=== PATIENT | female | born 1930 | race Caucasian/White ===

== ENCOUNTER 2017-07-01 10:27 | Inpatient (IN) | payer MEDICARE, MEDICAID ==
[~2017-07-01] VITALS: Ht 154.9 cm; Wt 84.1 kg
[~2017-07-01 10:27] MED LIST: ALCL15CR TOP; ARFO15VI3 NEB; ASPI-1265 PO; ATOR10TA87 PO; DESO60OI6 TP; DOCU-28 PO; ESOM40CA PO; HYDR-569 PO; LEVO75TA PO; MAGN296S50 PO; MECL12.5 PO; NOR5T PO; NYST1000 PO; RANI150C4 PO; VAL5T PO; enoxaparin 40mg/0.4ml syringe SUBCUT SCH
[2017-07-01 11:05] LABS: BASOPHILS % (AUTO) 0 % (0-1); EOSINOPHILS # (AUTO) 0.2 X10'3 (0-0.9); EOSINOPHILS % (AUTO) 2.1 % (0-6); HEMATOCRIT 33.7 % (35.0-45.0); HEMOGLOBIN 11.5 g/dl (12.0-16.0); LYMPHOCYTES # (AUTO) 2.1 X10'3 (1.1-4.8); LYMPHOCYTES % (AUTO) 24.9 % (21-51); MEAN CORPUSCULAR HEMOGLOBIN 29.6 PG (27.0-31.0); MEAN CORPUSCULAR VOLUME 86.9 FL (78-98); MEAN PLATELET VOLUME 6.9 FL (7.4-10.4); MONOCYTES # (AUTO) 0.5 X10'3 (0-0.9); MONOCYTES % (AUTO) 5.5 % (2-12); NEUTROPHILS # (AUTO) 5.8 X10'3 (1.8-7.7); NEUTROPHILS % (AUTO) 67.5 % (42-75); PLATELET COUNT 303 X10'3 (140-440); RED BLOOD COUNT 3.88 X10'6 (4.20-5.60); RED CELL DISTRIBUTION WIDTH 14.9 % (11.5-14.5); WHITE BLOOD COUNT 8.5 X10'3 (4.5-11.0)
[2017-07-01 11:06] LABS: CLARITY,URINE Clear (Clear); COLOR,URINE Yellow (Yellow); GLUCOSE, URINE Negative (Neg); KETONES,URINE Negative (Neg); LEUKOCYTE ESTERASE ,URINE Small (Neg); NITRITES, URINE Negative (Neg); OCCULT BLOOD,URINE Negative (Neg); PROTEIN,URINE Negative (Neg); UROBILINOGEN,URINE 0.2 E.U/dL (0.2-1.0)
[2017-07-01 11:08] LABS: UA COLLECTION TYPE CLN CATCH MIDSTREAM
[2017-07-01 11:11] LABS: BACTERIA,URINE NONE SEEN /HPF (Neg); RBC,URINE 0-2 /HPF (0-2); SQUAMOUS EPITHELIAL CELL,UR FEW /LPF (FEW); WBC,URINE 0-4 /HPF (0-4)
[2017-07-01 11:15] LABS: PARTIAL THROMBOPLASTIN TIME 24 SECONDS (22-32); PROTHROMBIN TIME 10.2 SECONDS (9.0-12.0)
[2017-07-01 11:20] LABS: ALANINE AMINOTRANSFERASE 24 U/L (12-78); ALBUMIN 3.6 G/DL (3.4-5.0); ALBUMIN/GLOBULIN RATIO 0.9 (1.1-1.5); ALKALINE PHOSPHATASE 87 IU/L (46-116); ANION GAP 9 (8-16); ASPARTATE AMINO TRANSFERASE 17 U/L (10-37); BILIRUBIN,TOTAL 0.3 MG/DL (0.1-1.0); BLOOD UREA NITROGEN 18 MG/DL (7-18); BUN/CREATININE RATIO 14.9 (6.6-38.0); CALCIUM 9.3 MG/DL (8.5-10.1); CHLORIDE 108 MMOL/L (99-107); CREATININE 1.21 MG/DL (0.40-0.90); GLUCOSE 101 MG/DL (70-104); POTASSIUM 3.8 MMOL/L (3.5-5.1); SODIUM 145 MMOL/L (135-145); TOTAL CARBON DIOXIDE 28.5 MMOL/L (24-32); TOTAL PROTEIN 7.8 G/DL (6.4-8.2); eGFR 42 ML/MIN
[2017-07-01] MEDS ORDERED: morphine 4 MG/ML inj SYRINge IV PRN (16:15)
[2017-07-01] MEDS ORDERED: mag hydrox/Alum hydrox/simeth 30ml oral suspension PO PRN (16:15)
[2017-07-01] MEDS ORDERED: acetaminophen 325mg tablet PO PRN ×2 (16:15)
[2017-07-01] MEDS ORDERED: magnesium hydroxide 30ml (MOM) UD suspension PO PRN (16:15)
[2017-07-01] MEDS ORDERED: ondansetron/PF 4mg/2ml inj IV PRN (16:15)
[2017-07-01] MEDS ORDERED: metoprolol tartrate 1mg/ml inj IV PRN ×2 (16:20→16:30)
[2017-07-01] MEDS ORDERED: nitroGLYCERIN 0.4mg SUBLingual tab SL PRN ×2 (16:20→16:30)
[2017-07-01] MEDS ORDERED: regadenoson 0.4mg/5ml syringe IV ONE ×2 (16:20→16:30)
[2017-07-01] MEDS ORDERED: aminophylline 250mg/10ml inj. IV PRN ×2 (16:20→16:30)
[2017-07-01] MEDS ORDERED: ARFO15VI3 NEB (16:45)
[2017-07-01 18:30] VITALS: BP 111/65
[2017-07-01] MEDS ORDERED: enoxaparin 40mg/0.4ml syringe SUBCUT ONE (18:45)
[2017-07-01 22:00] VITALS: BP 134/65
[2017-07-02] VITALS (10 sets, daily range): BP systolic 131–176; BP diastolic 63–77
[2017-07-02] MEDS ORDERED: pantoprazole 40mg Tablet.DR PO SCH (07:30)
[2017-07-02] MEDS ORDERED: enoxaparin 40mg/0.4ml syringe SUBCUT SCH (08:00)
[2017-07-02] MEDS ORDERED: regadenoson 0.4mg/5ml syringe IV ONE (08:20)
[2017-07-02] MEDS ORDERED: aminophylline inj. 10 ML IV ONE (08:20)
[2017-07-02] MEDS ORDERED: PANT40TA4 PO (11:00)
== END 2017-07-02 12:51 | disposition home health service (06) | DRG 392 ==
LOC: ER 10:27 → ED HOLD 16:11 → PCU 3S 21:00
PROVIDERS: ADMIT Internal Medicine; ATTEND Internal Medicine
PROC: 4A02XM4 Measurement of Cardiac Total Activity, External Approach (ICD-10-PCS; principal; 2017-07-02)
PROC: 3E073KZ Introduction of Other Diagnostic Substance into Coronary Artery, Percutaneous Approach (ICD-10-PCS; 2017-07-02)
DX: K21.9 Gastro-esophageal reflux disease without esophagitis (principal); J44.9 Chronic obstructive pulmonary disease, unspecified; E03.9 Hypothyroidism, unspecified; E78.00 Pure hypercholesterolemia, unspecified; E78.5 Hyperlipidemia, unspecified; I10 Essential (primary) hypertension; K29.70 Gastritis, unspecified, without bleeding; G89.29 Other chronic pain; M10.9 Gout, unspecified; R42 Dizziness and giddiness; M19.90 Unspecified osteoarthritis, unspecified site; M54.9 Dorsalgia, unspecified; Z90.49 Acquired absence of other specified parts of digestive tract; Z90.710 Acquired absence of both cervix and uterus; Z79.899 Other long term (current) drug therapy; Z88.1 Allergy status to other antibiotic agents; Z88.6 Allergy status to analgesic agent; Z88.2 Allergy status to sulfonamides; Z91.018 Allergy to other foods; Z88.8 Allergy status to other drugs, medicaments and biological substances
CPT/HCPCS: 36415; 71045; 78452; 80053; 81001; 84484; 85025; 85610; 85730; 87070; 87088; 93017; 99285; A9500; J0280

== ENCOUNTER 2017-08-20 18:08 | Emergency (ER) | payer MEDICARE, MEDICAID ==
[~2017-08-20] VITALS: Ht 154.9 cm; Wt 82.0 kg
[~2017-08-20 18:08] MED LIST changes: -ALCL15CR TOP; -DESO60OI6 TP; -DOCU-28 PO; -ESOM40CA PO; -MAGN296S50 PO; -NYST1000 PO; +PANT40TA4 PO; -enoxaparin 40mg/0.4ml syringe SUBCUT SCH
[2017-08-20 20:57] VITALS: BP 143/68
== END 2017-08-20 20:55 | disposition home or self-care (01) ==
LOC: ER 18:09
DX: M79.604 Pain in right leg (principal); E78.00 Pure hypercholesterolemia, unspecified; I10 Essential (primary) hypertension; J44.9 Chronic obstructive pulmonary disease, unspecified; K21.9 Gastro-esophageal reflux disease without esophagitis; G89.29 Other chronic pain; Z90.710 Acquired absence of both cervix and uterus; Z90.49 Acquired absence of other specified parts of digestive tract; Z88.6 Allergy status to analgesic agent; Z88.2 Allergy status to sulfonamides; Z88.1 Allergy status to other antibiotic agents; Z86.718 Personal history of other venous thrombosis and embolism
CPT/HCPCS: 93971; 99284

== ENCOUNTER 2017-08-26 09:09 | Inpatient (IN) | payer MEDICARE, MEDICAID ==
[~2017-08-26] VITALS: Ht 154.9 cm; Wt 81.8 kg
[2017-08-26] MEDS ORDERED: HYDROcodone/acetaminophen 5mg/325mg tablet PO ONE (09:45)
[2017-08-26] MEDS ORDERED: ondansetron/PF 4mg/2ml inj IV ONE (10:20)
[2017-08-26] MEDS ORDERED: normal saline 1000ML IV soln IVB ONE (10:20)
[2017-08-26] MEDS ORDERED: propofol 10mg/ml 20ml vial IV ONE (10:20)
[2017-08-26 12:11] LABS: BASOPHILS % (AUTO) 0.2 % (0-1); EOSINOPHILS # (AUTO) 0.1 X10'3 (0-0.9); HEMATOCRIT 27.8 % (35.0-45.0); HEMOGLOBIN 9.3 g/dl (12.0-16.0); LYMPHOCYTES # (AUTO) 1.3 X10'3 (1.1-4.8); LYMPHOCYTES % (AUTO) 14.7 % (21-51); MEAN CORPUSCULAR HEMOGLOBIN 29.1 PG (27.0-31.0); MEAN CORPUSCULAR HGB CONC 33.3 % (33.0-36.5); MEAN CORPUSCULAR VOLUME 87.3 FL (78-98); MEAN PLATELET VOLUME 7.4 FL (7.4-10.4); MONOCYTES # (AUTO) 0.8 X10'3 (0-0.9); MONOCYTES % (AUTO) 9.2 % (2-12); NEUTROPHILS # (AUTO) 6.8 X10'3 (1.8-7.7); NEUTROPHILS % (AUTO) 74.9 % (42-75); PLATELET COUNT 258 X10'3 (140-440); RED BLOOD COUNT 3.19 X10'6 (4.20-5.60); RED CELL DISTRIBUTION WIDTH 14.5 % (11.5-14.5); WHITE BLOOD COUNT 9.1 X10'3 (4.5-11.0)
[2017-08-26 12:20] LABS: CLARITY,URINE CLOUDY (Clear); COLOR,URINE YELLOW (Yellow); GLUCOSE, URINE NEGATIVE (Neg); KETONES,URINE NEGATIVE (Neg); LEUKOCYTE ESTERASE ,URINE MODERATE (Neg); NITRITES, URINE NEGATIVE (Neg); OCCULT BLOOD,URINE TRACE-INTACT (Neg); PROTEIN,URINE 100 mg/dl (Neg)
[2017-08-26] MEDS ORDERED: acetaminophen 325mg tablet PO PRN (12:20)
[2017-08-26] MEDS ORDERED: ondansetron/PF 4mg/2ml inj IV PRN (12:20)
[2017-08-26] MEDS ORDERED: mag hydrox/Alum hydrox/simeth 30ml oral suspension PO PRN (12:20)
[2017-08-26] MEDS ORDERED: magnesium hydroxide 30ml (MOM) UD suspension PO PRN (12:20)
[2017-08-26] MEDS ORDERED: morphine 4 MG/ML inj SYRINge IV PRN ×2 (12:20)
[2017-08-26 12:21] LABS: INR 1.1 INR; PARTIAL THROMBOPLASTIN TIME 30 SECONDS (22-32); PROTHROMBIN TIME 11.1 SECONDS (9.0-12.0)
[2017-08-26 12:23] LABS: UA COLLECTION TYPE CLN CATCH MIDSTREAM
[2017-08-26] MEDS ORDERED: LORazepam 2 mg/ml vial IV PRN (12:25)
[2017-08-26 12:28] LABS: ALANINE AMINOTRANSFERASE 17 U/L (12-78); ALBUMIN 2.5 G/DL (3.4-5.0); ALBUMIN/GLOBULIN RATIO 0.6 (1.1-1.5); ALKALINE PHOSPHATASE 71 IU/L (46-116); ANION GAP 10 (8-16); ASPARTATE AMINO TRANSFERASE 18 U/L (10-37); BILIRUBIN,TOTAL 0.4 MG/DL (0.1-1.0); BLOOD UREA NITROGEN 28 MG/DL (7-18); BUN/CREATININE RATIO 21.5 (6.6-38.0); CALCIUM 9.1 MG/DL (8.5-10.1); CHLORIDE 105 MMOL/L (99-107); GLUCOSE 119 MG/DL (70-104); POTASSIUM 3.8 MMOL/L (3.5-5.1); SODIUM 140 MMOL/L (135-145); TOTAL CARBON DIOXIDE 25.3 MMOL/L (24-32); TOTAL PROTEIN 6.9 G/DL (6.4-8.2); eGFR 39 ML/MIN
[2017-08-26 12:29] LABS: MUCUS STRANDS MODERATE /LPF (Neg); RBC,URINE 0-2 /HPF (0-2); SQUAMOUS EPITHELIAL CELL,UR FEW /LPF (FEW); WBC,URINE 50-100 /HPF (0-4)
[2017-08-26 12:30] LABS: COARSE GRANULAR CAST 0-3 /LPF (NEGATIVE); HYALINE CASTS 0-3 /LPF (NEGATIVE); TRANSITIONAL EPI CELLS,URINE FEW /HPF; WBC CLUMPS,URINE FEW /HPF (NEGATIVE)
[2017-08-26 12:32] LABS: AMORPHOUS URATES 2+; BACTERIA,URINE 1+ /HPF (Neg); RENAL CELLS, URINE FEW /HPF
[2017-08-26] MEDS ORDERED: LORazepam 2 mg/ml vial IV ONE (12:55)
[2017-08-26 13:05] LABS: MAGNESIUM 1.6 MG/DL (1.5-2.4)
[2017-08-26] MEDS: CefTRIAXone/D5W-Rocephin 1gm 50 ML IV SCH (14:12)
[2017-08-26] MEDS: sodium chloride 0.45% 1,000 ML IV SCH (14:12)
[2017-08-26 18:00] VITALS: BP 114/52
[2017-08-26] MEDS ORDERED: meclizine 12.5mg tablet PO PRN (18:30)
[2017-08-26] MEDS ORDERED: LORazepam 0.5 MG tablet PO PRN (18:30)
[2017-08-26] MEDS ORDERED: HYDROcodone/acetaminophen 5mg/325mg tablet PO PRN (18:30)
[2017-08-26] MEDS: famotidine 20mg tablet PO SCH (19:16)
[2017-08-26] MEDS: heparin, porcine 5000 units/ml vial SQ SCH (19:16)
[2017-08-26 22:00] VITALS: BP 123/55
[2017-08-26] MEDS: ARFORMOTEROL 15 MCG/2 ML IH SCH (22:24)
[2017-08-27 05:47] LABS: HEMATOCRIT 27.3 % (35.0-45.0); HEMOGLOBIN 9.3 g/dl (12.0-16.0); MEAN CORPUSCULAR HEMOGLOBIN 29.5 PG (27.0-31.0); MEAN CORPUSCULAR VOLUME 86.8 FL (78-98); MEAN PLATELET VOLUME 7.6 FL (7.4-10.4); PLATELET COUNT 268 X10'3 (140-440); RED BLOOD COUNT 3.15 X10'6 (4.20-5.60); RED CELL DISTRIBUTION WIDTH 14.3 % (11.5-14.5); WHITE BLOOD COUNT 7.8 X10'3 (4.5-11.0)
[2017-08-27 06:00] VITALS: BP 121/57
[2017-08-27 06:18] LABS: ALBUMIN 2.4 G/DL (3.4-5.0); ANION GAP 10 (8-16); BLOOD UREA NITROGEN 25 MG/DL (7-18); BUN/CREATININE RATIO 19.4 (6.6-38.0); CALCIUM 9.5 MG/DL (8.5-10.1); CHLORIDE 105 MMOL/L (99-107); CREATININE 1.29 MG/DL (0.40-0.90); GLUCOSE 92 MG/DL (70-104); MAGNESIUM 1.6 MG/DL (1.5-2.4); PHOSPHORUS 3.6 MG/DL (2.3-4.5); POTASSIUM 3.7 MMOL/L (3.5-5.1); SODIUM 141 MMOL/L (135-145); TOTAL CARBON DIOXIDE 25.8 MMOL/L (24-32); eGFR 39 ML/MIN
[2017-08-27 06:56] LABS: LARGE PLATELETS FEW; PLATELET ESTIMATE NORMAL; TOTAL CELLS COUNTED 100
[2017-08-27 07:15] VITALS: BP 124/59
[2017-08-27] MEDS: aspirin 81mg tab.chew PO SCH (08:00)
[2017-08-27] MEDS: heparin, porcine 5000 units/ml vial SQ SCH ×2 (08:00→20:16)
[2017-08-27] MEDS: famotidine 20mg tablet PO SCH ×2 (08:27→20:11)
[2017-08-27] MEDS: levoTHYROXINE 75mcg tablet PO SCH (08:27)
[2017-08-27] MEDS: ARFORMOTEROL 15 MCG/2 ML IH SCH ×2 (09:01→20:41)
[2017-08-27] MEDS: amLODIPine 5mg tablet PO SCH (09:09)
[2017-08-27] MEDS: atorvastatin 10mg tablet PO SCH (09:11)
[2017-08-27] MEDS: CefTRIAXone/D5W-Rocephin 1gm 50 ML IV SCH (09:49)
[2017-08-27 18:10] VITALS: BP 125/61
[2017-08-27] MEDS: sodium chloride 0.45% 1,000 ML IV SCH (18:55)
[2017-08-27] MEDS: lactobacillus rhamnosus 10,000 MMU CELLS/CAPSULE PO SCH (20:12)
[2017-08-27] MEDS: HYDROcodone/acetaminophen 5mg/325mg tablet PO PRN (20:12)
[2017-08-27 22:00] VITALS: BP 113/53
[2017-08-28] MEDS ORDERED: triamcinolone acetonide 40mg/ml inj IJ ONE (03:05)
[2017-08-28] MEDS ORDERED: LIDOcaine 1% (10mg/ml) 2ml vial SQ ONE (03:05)
[2017-08-28] MEDS: sodium chloride 0.45% 1,000 ML IV SCH ×2 (04:20→18:55)
[2017-08-28 06:07] LABS: BASOPHILS % (AUTO) 0.1 % (0-1); EOSINOPHILS # (AUTO) 0.3 X10'3 (0-0.9); EOSINOPHILS % (AUTO) 4.5 % (0-6); HEMATOCRIT 26.8 % (35.0-45.0); HEMOGLOBIN 8.9 g/dl (12.0-16.0); LYMPHOCYTES # (AUTO) 1.6 X10'3 (1.1-4.8); LYMPHOCYTES % (AUTO) 25.9 % (21-51); MEAN CORPUSCULAR HEMOGLOBIN 29.1 PG (27.0-31.0); MEAN CORPUSCULAR HGB CONC 33.4 % (33.0-36.5); MEAN CORPUSCULAR VOLUME 86.9 FL (78-98); MEAN PLATELET VOLUME 7.3 FL (7.4-10.4); MONOCYTES # (AUTO) 0.4 X10'3 (0-0.9); MONOCYTES % (AUTO) 7.1 % (2-12); NEUTROPHILS # (AUTO) 3.8 X10'3 (1.8-7.7); NEUTROPHILS % (AUTO) 62.4 % (42-75); PLATELET COUNT 297 X10'3 (140-440); RED BLOOD COUNT 3.08 X10'6 (4.20-5.60); RED CELL DISTRIBUTION WIDTH 14.1 % (11.5-14.5); WHITE BLOOD COUNT 6.1 X10'3 (4.5-11.0)
[2017-08-28 06:16] LABS: ALBUMIN 2.2 G/DL (3.4-5.0); ANION GAP 9 (8-16); BLOOD UREA NITROGEN 21 MG/DL (7-18); BUN/CREATININE RATIO 18.3 (6.6-38.0); CALCIUM 9.2 MG/DL (8.5-10.1); CHLORIDE 107 MMOL/L (99-107); CREATININE 1.15 MG/DL (0.40-0.90); GLUCOSE 99 MG/DL (70-104); POTASSIUM 3.7 MMOL/L (3.5-5.1); SODIUM 142 MMOL/L (135-145); TOTAL CARBON DIOXIDE 26.5 MMOL/L (24-32); eGFR 45 ML/MIN
[2017-08-28 06:50] VITALS: BP 131/62
[2017-08-28] MEDS: levoTHYROXINE 75mcg tablet PO SCH (07:44)
[2017-08-28] MEDS: ARFORMOTEROL 15 MCG/2 ML IH SCH ×2 (07:44→20:21)
[2017-08-28] MEDS: famotidine 20mg tablet PO SCH ×2 (07:44→20:25)
[2017-08-28] MEDS: CefTRIAXone/D5W-Rocephin 1gm 50 ML IV SCH (07:44)
[2017-08-28] MEDS: amLODIPine 5mg tablet PO SCH (10:22)
[2017-08-28] MEDS: aspirin 81mg tab.chew PO SCH (10:22)
[2017-08-28] MEDS: heparin, porcine 5000 units/ml vial SQ SCH ×2 (10:22→20:28)
[2017-08-28] MEDS: lactobacillus rhamnosus 10,000 MMU CELLS/CAPSULE PO SCH ×2 (10:22→20:25)
[2017-08-28] MEDS: atorvastatin 10mg tablet PO SCH (10:22)
[2017-08-28 10:27] LABS: PLATELET ESTIMATE NORMAL; TOTAL CELLS COUNTED 100
[2017-08-28 10:53] LABS: APPEARANCE,SYNOVIAL FLUID CLOUDY; COLOR,SYNOVIAL FLUID YELLOW; SYN RBC 2700 /CU MM (0); SYN WBC 6075 /CU MM (0-200)
[2017-08-28 12:39] VITALS: BP 126/58
[2017-08-28] MEDS: Protein Shake (high protein) 240ml (8oz) cup PO SCH ×2 (12:41→18:57)
[2017-08-28] MEDS: HYDROcodone/acetaminophen 5mg/325mg tablet PO PRN (14:01)
[2017-08-28] MEDS ORDERED: CEFP100T7 PO (14:33)
[2017-08-28] MEDS ORDERED: LACT1CAP26 PO (14:33)
[2017-08-28] MEDS ORDERED: CefTRIAXone/D5W-Rocephin 1gm 50 ML IV ONE (14:50)
[2017-08-28 16:07] LABS: % IRON SATURATION 8 % (11-46); IRON 22 UG/DL (49-151); TOTAL IRON BINDING CAPACITY 268 UG/DL (259-388)
[2017-08-28 16:17] LABS: C-REACTIVE PROTEIN 10.15 MG/DL (0.0-0.5)
[2017-08-28 18:30] VITALS: BP 130/73
[2017-08-28 22:00] VITALS: BP 87/50
[2017-08-28 22:37] LABS: OCCULT BLOOD STOOL NEGATIVE (Neg)
[2017-08-29 06:00] LABS: BASOPHILS % (AUTO) 0.1 % (0-1); EOSINOPHILS % (AUTO) 0.8 % (0-6); HEMATOCRIT 27.4 % (35.0-45.0); HEMOGLOBIN 9.3 g/dl (12.0-16.0); LYMPHOCYTES # (AUTO) 0.8 X10'3 (1.1-4.8); MEAN CORPUSCULAR HEMOGLOBIN 29.1 PG (27.0-31.0); MEAN CORPUSCULAR HGB CONC 33.9 % (33.0-36.5); MEAN CORPUSCULAR VOLUME 85.9 FL (78-98); MEAN PLATELET VOLUME 7.3 FL (7.4-10.4); MONOCYTES # (AUTO) 0.2 X10'3 (0-0.9); MONOCYTES % (AUTO) 3.1 % (2-12); PLATELET COUNT 329 X10'3 (140-440); RED BLOOD COUNT 3.19 X10'6 (4.20-5.60); RED CELL DISTRIBUTION WIDTH 14.2 % (11.5-14.5); WHITE BLOOD COUNT 5.1 X10'3 (4.5-11.0)
[2017-08-29 06:53] LABS: ALBUMIN 2.4 G/DL (3.4-5.0); ANION GAP 9 (8-16); BLOOD UREA NITROGEN 19 MG/DL (7-18); BUN/CREATININE RATIO 15.8 (6.6-38.0); CALCIUM 9.5 MG/DL (8.5-10.1); CHLORIDE 108 MMOL/L (99-107); GLUCOSE 146 MG/DL (70-104); POTASSIUM 4.1 MMOL/L (3.5-5.1); SODIUM 143 MMOL/L (135-145); TOTAL CARBON DIOXIDE 25.9 MMOL/L (24-32); eGFR 43 ML/MIN
[2017-08-29 07:00] VITALS: BP 149/72
[2017-08-29] MEDS: famotidine 20mg tablet PO SCH ×2 (07:22→20:00)
[2017-08-29] MEDS: levoTHYROXINE 75mcg tablet PO SCH (07:22)
[2017-08-29] MEDS: CefTRIAXone 2gm/D5W 50ml 50 ML IV SCH (07:22)
[2017-08-29] MEDS: aspirin 81mg tab.chew PO SCH (08:57)
[2017-08-29] MEDS: lactobacillus rhamnosus 10,000 MMU CELLS/CAPSULE PO SCH ×2 (08:57→20:00)
[2017-08-29] MEDS: heparin, porcine 5000 units/ml vial SQ SCH ×2 (08:58→20:00)
[2017-08-29] MEDS: amLODIPine 5mg tablet PO SCH (08:58)
[2017-08-29] MEDS: atorvastatin 10mg tablet PO SCH (08:58)
[2017-08-29] MEDS: Protein Shake (high protein) 240ml (8oz) cup PO SCH ×3 (08:58→18:00)
[2017-08-29] MEDS: ARFORMOTEROL 15 MCG/2 ML IH SCH ×2 (10:15→20:34)
[2017-08-29 11:12] VITALS: BP 146/72
[2017-08-29] MEDS: HYDROcodone/acetaminophen 5mg/325mg tablet PO PRN ×2 (12:54→22:14)
[2017-08-29] MEDS: ascorbic acid 500mg tablet PO SCH (17:23)
[2017-08-29 18:00] VITALS: BP 134/63
[2017-08-29] MEDS: ferrous gluconate 324mg tablet PO SCH (20:00)
[2017-08-29] MEDS: sodium chloride 0.45% 1,000 ML IV SCH (20:20)
[2017-08-29 22:00] VITALS: BP 124/57
[2017-08-30 06:00] VITALS: BP 137/57
[2017-08-30 07:16] LABS: BASOPHILS % (AUTO) 0.1 % (0-1); EOSINOPHILS # (AUTO) 0.1 X10'3 (0-0.9); EOSINOPHILS % (AUTO) 1.1 % (0-6); HEMOGLOBIN 9.6 g/dl (12.0-16.0); LYMPHOCYTES # (AUTO) 1.4 X10'3 (1.1-4.8); LYMPHOCYTES % (AUTO) 18.4 % (21-51); MEAN CORPUSCULAR HEMOGLOBIN 28.8 PG (27.0-31.0); MEAN CORPUSCULAR HGB CONC 33.3 % (33.0-36.5); MEAN CORPUSCULAR VOLUME 86.7 FL (78-98); MEAN PLATELET VOLUME 7.4 FL (7.4-10.4); MONOCYTES # (AUTO) 0.3 X10'3 (0-0.9); MONOCYTES % (AUTO) 4.4 % (2-12); NEUTROPHILS # (AUTO) 5.9 X10'3 (1.8-7.7); PLATELET COUNT 398 X10'3 (140-440); RED BLOOD COUNT 3.34 X10'6 (4.20-5.60); RED CELL DISTRIBUTION WIDTH 14.2 % (11.5-14.5); WHITE BLOOD COUNT 7.7 X10'3 (4.5-11.0)
[2017-08-30 07:24] LABS: ALBUMIN 2.6 G/DL (3.4-5.0); ANION GAP 7 (8-16); BLOOD UREA NITROGEN 24 MG/DL (7-18); BUN/CREATININE RATIO 20.9 (6.6-38.0); CALCIUM 9.6 MG/DL (8.5-10.1); CHLORIDE 108 MMOL/L (99-107); CREATININE 1.15 MG/DL (0.40-0.90); GLUCOSE 108 MG/DL (70-104); POTASSIUM 3.6 MMOL/L (3.5-5.1); SODIUM 143 MMOL/L (135-145); TOTAL CARBON DIOXIDE 27.9 MMOL/L (24-32); eGFR 45 ML/MIN
[2017-08-30] MEDS: lactobacillus rhamnosus 10,000 MMU CELLS/CAPSULE PO SCH (07:37)
[2017-08-30] MEDS: CefTRIAXone 2gm/D5W 50ml 50 ML IV SCH (07:37)
[2017-08-30] MEDS: atorvastatin 10mg tablet PO SCH ×2 (07:39→08:41)
[2017-08-30] MEDS: famotidine 20mg tablet PO SCH (07:39)
[2017-08-30] MEDS: levoTHYROXINE 75mcg tablet PO SCH (07:39)
[2017-08-30] MEDS: heparin, porcine 5000 units/ml vial SQ SCH (07:41)
[2017-08-30] MEDS: ARFORMOTEROL 15 MCG/2 ML IH SCH (08:24)
[2017-08-30 08:39] VITALS: BP 147/62
[2017-08-30] MEDS: ferrous gluconate 324mg tablet PO SCH (08:41)
[2017-08-30] MEDS: aspirin 81mg tab.chew PO SCH (08:41)
[2017-08-30] MEDS: ascorbic acid 500mg tablet PO SCH (08:41)
[2017-08-30] MEDS: Protein Shake (high protein) 240ml (8oz) cup PO SCH (08:41)
[2017-08-30] MEDS: amLODIPine 5mg tablet PO SCH (08:41)
== END 2017-08-30 11:00 | disposition home health service (06) | DRG 557 ==
LOC: ER 09:10 → ED HOLD 12:20 → ORTHO 4S 16:00
PROVIDERS: ADMIT Internal Medicine; ATTEND Family Medicine
PROC: 2W3AX1Z Immobilization of Right Upper Arm using Splint (ICD-10-PCS; principal; 2017-08-26)
PROC: 3E0U33Z Introduction of Anti-inflammatory into Joints, Percutaneous Approach (ICD-10-PCS; 2017-08-28)
PROC: 0R9J3ZX Drainage of Right Shoulder Joint, Percutaneous Approach, Diagnostic (ICD-10-PCS; 2017-08-28)
DX: M75.51 Bursitis of right shoulder (principal); E43 Unspecified severe protein-calorie malnutrition; N39.0 Urinary tract infection, site not specified; D64.9 Anemia, unspecified; N18.3 Chronic kidney disease, stage 3 (moderate); J44.9 Chronic obstructive pulmonary disease, unspecified; S43.031A Inferior subluxation of right humerus, initial encounter; E03.9 Hypothyroidism, unspecified; E78.00 Pure hypercholesterolemia, unspecified; Z68.34 Body mass index [BMI] 34.0-34.9, adult; G89.29 Other chronic pain; M10.9 Gout, unspecified; M54.9 Dorsalgia, unspecified; E78.5 Hyperlipidemia, unspecified; G72.89 Other specified myopathies; M25.411 Effusion, right shoulder; I12.9 Hypertensive chronic kidney disease with stage 1 through stage 4 chronic kidney disease, or unspecified chronic kidney disease; X58.XXXA Exposure to other specified factors, initial encounter; I25.10 Atherosclerotic heart disease of native coronary artery without angina pectoris; K21.9 Gastro-esophageal reflux disease without esophagitis; M19.90 Unspecified osteoarthritis, unspecified site; Z90.49 Acquired absence of other specified parts of digestive tract; Z90.710 Acquired absence of both cervix and uterus; Z88.2 Allergy status to sulfonamides; Z88.1 Allergy status to other antibiotic agents; Z88.6 Allergy status to analgesic agent; Z88.8 Allergy status to other drugs, medicaments and biological substances; Z79.82 Long term (current) use of aspirin; Z79.899 Other long term (current) drug therapy; Z86.718 Personal history of other venous thrombosis and embolism; Z86.73 Personal history of transient ischemic attack (TIA), and cerebral infarction without residual deficits; Z87.440 Personal history of urinary (tract) infections; Y93.89 Activity, other specified; Y92.89 Other specified places as the place of occurrence of the external cause; Y99.8 Other external cause status
CPT/HCPCS: 23650; 36415; 71045; 72141; 73020; 73030; 73130; 73221; 80048; 80053; 81001; 82272; 82607; 82728; 82746; 83540; 83550; 83735; 84100; 84145; 85007; 85025; 85610; 85651; 85730; 86140; 87070; 87088; 89051; 93005; 94640; 94760; 96361; 96374; 99152; 99285; A4565; A6258; A6402; J0696; J1644; J2060; J2270; J2405; J2704; J3301; J3490; J7030; J8597

== ENCOUNTER 2018-07-11 09:48 | Inpatient (IN) | payer MEDICARE, MEDICAID | END 2018-07-12 13:25 | disposition home or self-care (01) | LOC: ER 09:48 → ED HOLD 12:49 → ORTHO 4S 14:45 ==

== ENCOUNTER 2020-02-08 13:15 | Emergency (ER) | payer MEDICARE, MEDICAID ==
[~2020-02-08] VITALS: Ht 154.9 cm; Wt 86.4 kg
[~2020-02-08 13:15] MED LIST changes: +HYDR-4383 PO; -HYDR-569 PO; -PANT40TA4 PO; -VAL5T PO
--- NOTE | 2020-02-08 16:24 | NUR ---
vascular at bedside
--- NOTE | 2020-02-08 16:53 | NUR ---
vandana daughter will be pts ride [phone]
--- NOTE | 2020-02-08 16:54 | NUR ---
tracy is daughter she can be called as well [phone]
--- NOTE | 2020-02-08 17:14 | NUR ---
awaiting vascular report, pt resting comfortably, vs updated
[2020-02-08] MEDS ORDERED: DOCU-148 PO (18:04)
[2020-02-08] MEDS ORDERED: HYDR-3965 PO (18:04)
--- NOTE | 2020-02-08 18:04 | NUR ---
daughter is on her way to pick pt up
[2020-02-08 18:23] VITALS: BP 121/58
== END 2020-02-08 18:25 | disposition home or self-care (01) ==
LOC: ER 13:15
DX: S80.11XA Contusion of right lower leg, initial encounter (principal); M25.561 Pain in right knee; E78.00 Pure hypercholesterolemia, unspecified; I10 Essential (primary) hypertension; J44.9 Chronic obstructive pulmonary disease, unspecified; K21.9 Gastro-esophageal reflux disease without esophagitis; M19.90 Unspecified osteoarthritis, unspecified site; G89.29 Other chronic pain; G62.9 Polyneuropathy, unspecified; R42 Dizziness and giddiness; Z90.49 Acquired absence of other specified parts of digestive tract; Z90.710 Acquired absence of both cervix and uterus; Z79.2 Long term (current) use of antibiotics; Z88.2 Allergy status to sulfonamides; Z88.8 Allergy status to other drugs, medicaments and biological substances; Z79.82 Long term (current) use of aspirin; Z79.899 Other long term (current) drug therapy
CPT/HCPCS: 29505; 73502; 73564; 73610; 73630; 93971; 99285

== ENCOUNTER 2020-12-20 12:01 | Emergency (ER) | payer MEDICARE, MEDICAID ==
[~2020-12-20 12:01] MED LIST changes: +DOCU-148 PO
== END 2020-12-20 16:28 | disposition left against medical advice (07) ==
LOC: ER 12:01
DX: M79.606 Pain in leg, unspecified (principal); M79.603 Pain in arm, unspecified; Z53.21 Procedure and treatment not carried out due to patient leaving prior to being seen by health care provider

== ENCOUNTER 2021-05-23 14:14 | Emergency (ER) | payer MEDICARE, MEDICAID ==
[~2021-05-23] VITALS: Ht 154.9 cm; Wt 86.4 kg
[2021-05-23 14:27] VITALS: BP 159/84
[2021-05-23 15:03] LABS: BASOPHILS % (AUTO) 0.2 % (0-1); EOSINOPHILS # (AUTO) 0.1 X10'3 (0-0.9); HEMATOCRIT 34.6 % (35.0-45.0); HEMOGLOBIN 11.4 g/dl (12.0-16.0); LYMPHOCYTES % (AUTO) 28.8 % (21-51); MEAN CORPUSCULAR HEMOGLOBIN 29.7 PG (27.0-31.0); MEAN CORPUSCULAR HGB CONC 32.9 g/dL (33.0-36.5); MEAN CORPUSCULAR VOLUME 90.3 FL (78-98); MEAN PLATELET VOLUME 6.9 FL (7.4-10.4); MONOCYTES # (AUTO) 0.6 X10'3 (0-0.9); MONOCYTES % (AUTO) 8.2 % (2-12); NEUTROPHILS # (AUTO) 4.2 X10'3 (1.8-7.7); NEUTROPHILS % (AUTO) 60.8 % (42-75); PLATELET COUNT 328 X10'3 (140-440); RED BLOOD COUNT 3.83 X10'6 (4.20-5.60); RED CELL DISTRIBUTION WIDTH 14.8 % (11.5-14.5); WHITE BLOOD COUNT 6.8 X10'3 (4.5-11.0)
[2021-05-23 15:19] LABS: ALANINE AMINOTRANSFERASE 21 U/L (12-78); ALBUMIN 3.7 G/DL (3.4-5.0); ALBUMIN/GLOBULIN RATIO 0.9 (1.1-1.5); ALKALINE PHOSPHATASE 81 IU/L (46-116); ANION GAP 7 (8-16); ASPARTATE AMINO TRANSFERASE 18 U/L (10-37); BILIRUBIN,TOTAL 0.3 MG/DL (0.1-1.0); BLOOD UREA NITROGEN 23 MG/DL (7-18); BUN/CREATININE RATIO 20.4 (6.6-38.0); CALCIUM 9.6 MG/DL (8.5-10.1); CHLORIDE 108 MMOL/L (99-107); CREATININE 1.13 MG/DL (0.40-0.90); GLUCOSE 93 MG/DL (70-104); POTASSIUM 3.9 MMOL/L (3.5-5.1); SODIUM 142 MMOL/L (135-145); TOTAL PROTEIN 7.9 G/DL (6.4-8.2); eGFR 45 ML/MIN
[2021-05-23 18:49] LABS: CLARITY,URINE CLEAR (Clear); COLOR,URINE YELLOW (Yellow); GLUCOSE, URINE NEGATIVE (Neg); KETONES,URINE NEGATIVE (Neg); LEUKOCYTE ESTERASE ,URINE NEGATIVE (Neg); NITRITES, URINE NEGATIVE (Neg); OCCULT BLOOD,URINE NEGATIVE (Neg); PROTEIN,URINE TRACE mg/dl (Neg); UROBILINOGEN,URINE 0.2 E.U/dL (0.2-1.0)
[2021-05-23 18:53] LABS: UA COLLECTION TYPE STRAIGHT CATH
[2021-05-23 18:55] LABS: BACTERIA,URINE FEW /HPF (Neg); FINE GRANULAR CAST 0-3 /LPF (NEGATIVE); HYALINE CASTS 0-3 /LPF (NEGATIVE); SQUAMOUS EPITHELIAL CELL,UR FEW /LPF (FEW)
[2021-05-23 18:56] LABS: RBC,URINE 0-2 /HPF (0-2); WBC,URINE 0-4 /HPF (0-4)
[2021-05-23] MEDS ORDERED: PANT20TA18 PO (19:37)
== END 2021-05-23 19:45 | disposition home or self-care (01) ==
LOC: ER 14:14
DX: R07.89 Other chest pain (principal); R10.13 Epigastric pain; R35.0 Frequency of micturition; R30.0 Dysuria; E11.43 Type 2 diabetes mellitus with diabetic autonomic (poly)neuropathy; E78.00 Pure hypercholesterolemia, unspecified; J44.9 Chronic obstructive pulmonary disease, unspecified; K21.9 Gastro-esophageal reflux disease without esophagitis; M19.90 Unspecified osteoarthritis, unspecified site; G89.29 Other chronic pain; M81.0 Age-related osteoporosis without current pathological fracture; Z86.718 Personal history of other venous thrombosis and embolism; Z90.49 Acquired absence of other specified parts of digestive tract; Z90.710 Acquired absence of both cervix and uterus; Z88.1 Allergy status to other antibiotic agents; Z88.2 Allergy status to sulfonamides; Z88.8 Allergy status to other drugs, medicaments and biological substances; Z79.899 Other long term (current) drug therapy; Z79.82 Long term (current) use of aspirin
CPT/HCPCS: 36415; 71045; 80053; 81001; 84484; 85025; 85610; 93005; 99285